=== PATIENT | male | born 1975 ===

== ENCOUNTER 2018-10-27 10:06 | Outpatient (CLI) | payer OTHER ==
--- NOTE | 2018-10-27 10:40 | RAD ---
TWO VIEWS LUMBOSACRAL SPINE: Comparison: None. History: Lumbar radicular pain. FINDINGS: Three views lumbosacral spine shows normal height and alignment of the vertebral bodies and intervert ebral discs without fracture or subluxation. No significant degenerative changes are seen. No change in alignment are seen with flexion or extension. IMPRESSION: Unremarkable exam. POS: [facility]
== END 2018-10-27 10:07 | disposition home or self-care (01) ==
LOC: RAD 10:06
PROVIDERS: ATTEND Nurse Practitioner Family
DX: M54.16 Radiculopathy, lumbar region (principal)
CPT/HCPCS: 72100